=== PATIENT | female | born 1985 | race Caucasian/White ===

== ENCOUNTER → 2022-10-05 15:21 | Outpatient (CLI) | payer OTHER, SELFPAY ==
[2022-10-05 19:02] LABS: Urine Chlamydia NOT DETECTED; Urine N gonorrhoeae NOT DETECTED
== END ==
PROVIDERS: PCP Nurse Practitioner Family; Visit Provider Specialist
DX: Z34.01 Encounter for supervision of normal first pregnancy, first trimester (principal); Z3A.09 9 weeks gestation of pregnancy
CPT/HCPCS: 87491; 87591

== ENCOUNTER → 2022-10-20 09:55 | Outpatient (CLI) | payer OTHER, SELFPAY ==
[2022-10-20 11:14] LABS: Add Manual Diff / Slide Review NO; Basophils Absolute Auto 0 /uL (0-100); Basophils Percent Auto 0.6 % (0-2); Eosinophils Absolute Auto 100 /uL (0-450); Hematocrit 36.3 % (36-46); Hemoglobin 12.5 g/dL (12.0-16.0); Lymphocytes Absolute Auto 1200 /uL (1100-4500); Lymphocytes Percent Auto 15.4 % (25-40); Mean Corpuscular HGB Conc 34.5 % (30-36); Mean Corpuscular Hemoglobin 30.3 PG (26-34); Mean Corpuscular Volume 87.7 fL (80-100); Monocytes Absolute Auto 500 /uL (0-900); Monocytes Percent Auto 6.9 % (3-14); Neutrophils Absolute Auto 6000 /uL (1500-7000); Neutrophils Percent Auto 76.1 % (50-75); Platelet Count 257 X10^3/uL (150-400); Red Blood Cell Count 4.14 X10^6/uL (4.0-5.2); Red Cell Distribution Width 13.6 % (11.6-14.8); White Blood Cell Count 7.8 X10^3/uL (4.5-11.0)
[2022-10-20 18:53] LABS: HIV 1 & 2 Ab/Ag 4th Gen Combo NEGATIVE (NEGATIVE); Hep C Virus Ab w/Reflex Quant NEGATIVE s/c (NEGATIVE); Hepatitis B Surface Antigen NEGATIVE s/c (NEGATIVE); Rubella Antibody IgG 78.6 IU/mL (>15)
[2022-10-21 03:56] LABS: RPR Screen Non Reactive (Non Reactive)
[2022-10-21 07:31] LABS: Varicella IgG Antibody >4000 index (Immune >165)
== END ==
PROVIDERS: Referring Provider Obstetrics & Gynecology; Visit Provider Obstetrics & Gynecology
DX: O09.511 Supervision of elderly primigravida, first trimester (principal)
CPT/HCPCS: 36415; 80055; 86787; 86803; 86850; 86900; 86901; 87086; 87389

== ENCOUNTER → 2022-11-16 15:24 | Outpatient (CLI) | payer OTHER, SELFPAY ==
[2022-11-18 22:20] LABS: AFP Value 41.6 ng/mL (.); Gest Age on Col Date 15.7 weeks (.); Insulin Dep Diabetes No (.); OSBR Risk 1IN 8371 (.); Results Report (.); Test Results *Screen Negative* (.)
== END ==
PROVIDERS: PCP Nurse Practitioner Family; Referring Provider Obstetrics & Gynecology; Visit Provider Obstetrics & Gynecology
DX: Z34.02 Encounter for supervision of normal first pregnancy, second trimester (principal); Z3A.16 16 weeks gestation of pregnancy
CPT/HCPCS: 36415; 82105

== ENCOUNTER → 2022-12-21 10:40 | Outpatient (CLI) | payer OTHER, SELFPAY ==
--- NOTE | 2022-12-21 10:41 | DI.US.S_ITS ---
PROCEDURE: US OB >= 14 WEEKS FETUS INDICATIONS: anatomy scan OUTSIDE/PRIOR DATING DATA: Last menstrual period (LMP): 07/29/2022. LMP-based estimated date of delivery (ADELAIDA): 05/05/2023. First dating scan (date and location): 10/05/2022. Estimated date of delivery (ADELAIDA) from first dating scan: 04/30/2023. The calculations are made using the clinical ADELAIDA of 05/05/2023. TECHNIQUE: Real-time scanning was performed of the fetus, with image documentation and biometric measurements. COMPARISON: [facility], , OB <= 14 WEEKS FETUS, 10/05/2022, 15:10. FINDINGS: General: A single living intrauterine gestation is present. Presentation: Variable. Placenta: Placental position is anterior, without previa. Amniotic fluid index: 17.9 cm, normal range is 5-24 cm. Single deepest vertical pocket is 6.2 cm. heart rate: 144 beats per minute. Maternal cervical canal: 4.1 cm long. Normal lower limit is 2.5 cm. biometrics: Biparietal diameter: 5.2 cm, 21 weeks 5 days Head circumference: 19.1 cm, 21 weeks 2 days Abdominal circumference: 16.8 cm, 21 weeks 6 days Femur length: 3.5 cm, 21 weeks 1 day Clinically estimated gestational age: 20 weeks 5 days Composite gestational age from present scan: 21 weeks 4 days Estimated weight and percentile: 431 g, 86 percentile Anatomic survey: Neuro: Ventricles are non-dilated at less than 10 mm. Cisterna magna is normal at 3-11 mm. Cerebellum is normal in size and morphology. Nuchal skin fold: Normal at less than 6 mm between 14-21 weeks gestational age. Face: Nose and lips, facial profile are normal. Spine: No evidence for spina bifida. Heart: 4-chambered heart is present, with normal ventricular outflow tracts. Diaphragm: Diaphragm is intact. Stomach: Left-sided stomach is present. Kidneys: No hydronephrosis. Normal is less than 5 mm in 2nd trimester, less than 7 mm in 3rd trimester. Cord: 3-vessel cord has orthotopic insertion. Bladder: Normal in size. Extremities: All 4 extremities identified. IMPRESSION: 1. Hernandez living intrauterine at 21 weeks 4 days based on today's ultrasound. Fetus is in the 86 percentile for weight. 2. Normal placenta and amniotic fluid. 3. Normal and complete anatomic survey. We strive to produce accurate, complete, and clear reports of imaging services. To assist us in improving patient care, this report was composed using standard report templates and voice recognition software. Therefore, it may contain abnormal punctuation, insertions and/or omissions. Occasional wrong-word or sound-alike substitutions may occur. Though we review the report and make efforts to correct it, we do recommend that the report be read carefully in proper context to recognize any text inaccuracies. Dictated by: Jas Kearns M.D. on 12/21/2022 at 14:14 Approved by: Jas Kearns M.D. on 12/21/2022 at 14:18
== END ==
PROVIDERS: PCP Nurse Practitioner Family; Referring Provider Obstetrics & Gynecology; Visit Provider Obstetrics & Gynecology
DX: Z34.02 Encounter for supervision of normal first pregnancy, second trimester (principal); Z3A.21 21 weeks gestation of pregnancy
CPT/HCPCS: 76811

== ENCOUNTER → 2023-02-17 07:29 | Outpatient (CLI) | payer OTHER, SELFPAY ==
[2023-02-17 10:19] LABS: Hematocrit 33.2 % (36-46); Hemoglobin 11.6 g/dL (12.0-16.0)
[2023-02-17 10:31] LABS: GTT (PREG) 1 Hour PP 50gm Dose 109 mg/dL (76-139)
== END ==
PROVIDERS: PCP Nurse Practitioner Family; Referring Provider Obstetrics & Gynecology; Visit Provider Obstetrics & Gynecology
DX: Z34.02 Encounter for supervision of normal first pregnancy, second trimester (principal); Z3A.26 26 weeks gestation of pregnancy
CPT/HCPCS: 36415; 82950; 85014; 85018

== ENCOUNTER → 2023-04-17 15:30 | Outpatient (CLI) | payer OTHER, SELFPAY ==
[2023-04-20 07:32] LABS: Strep Grp B PCR NEG for Grp B Strep
== END ==
PROVIDERS: PCP Nurse Practitioner Family; Visit Provider Physician Assistant Medical
DX: Z34.03 Encounter for supervision of normal first pregnancy, third trimester (principal); Z3A.37 37 weeks gestation of pregnancy
CPT/HCPCS: 87653

== ENCOUNTER 2023-05-08 18:57 | Inpatient (IN) | payer OTHER, SELFPAY ==
[2023-05-08 19:41] VITALS: BP 115/76
[2023-05-08 19:53] LABS: Add Manual Diff / Slide Review NO; Basophils Absolute Auto 100 /uL (0-100); Basophils Percent Auto 0.7 % (0-2); Eosinophils Absolute Auto 100 /uL (0-450); Eosinophils Percent Auto 1.2 % (2-4); Hematocrit 37.4 % (36-46); Hemoglobin 12.9 g/dL (12.0-16.0); Lymphocytes Absolute Auto 1200 /uL (1100-4500); Lymphocytes Percent Auto 13.7 % (25-40); Mean Corpuscular HGB Conc 34.4 % (30-36); Mean Corpuscular Hemoglobin 31.6 PG (26-34); Mean Corpuscular Volume 91.8 fL (80-100); Monocytes Absolute Auto 700 /uL (0-900); Monocytes Percent Auto 8.2 % (3-14); Neutrophils Absolute Auto 6900 /uL (1500-7000); Neutrophils Percent Auto 76.2 % (50-75); Platelet Count 224 X10^3/uL (150-400); Red Blood Cell Count 4.08 X10^6/uL (4.0-5.2); Red Cell Distribution Width 13.3 % (11.6-14.8)
[2023-05-08] MEDS: DINOPROSTONE VAG (CERVIDIL) 10 MG VAG (20:00)
[2023-05-09] MEDS: LACTATED RINGERS 1,000 ML 100 ML IV ×3 (01:30→15:14)
--- NOTE | 2023-05-09 05:02 | PM.ANES.PR ---
Operative Date/Time/Diagnoses Date of procedure: 05/09/23 Time of procedure: 04:37 Pre-op diagnosis: Labor Pain Post-op diagnosis: same Note Patient is a requesting labor epidural for labor pain
--- NOTE | 2023-05-09 05:04 | PM.AN.REGBLK ---
Regional Block Pre-procedure Procedure: Continuous Lumbar Epidural for L&D Attending OB provider: Daxa Joseph PMH/ROS narrative: Patient is a requesting labor epidural for labor pain Hx: No personal or family history of anesthesia problems. Exam narrative: Mallampati: 2, Good neck ROM, T.M. > 3cm ASA Class: II Labs: Hct 37.4 % (36-46) 05/08/23 19:30 Plt Count 224 X10^3/uL (150-400) 05/08/23 19:30 Medications: Current Medications Generic Name Dose Route Start Last Admin Trade Name Freq PRN Reason Stop Dose Admin Calcium Carbonate 1,000 mg 05/08/23 19:23 Calcium Carbonate 500 Mg Tab PO Q4HR PRN Dyspepsia Carboprost Tromethamine 250 mcg 05/08/23 19:23 Carboprost 250 Mcg/Ml Ampul IM Q90M PRN Bleeding Diphenhydramine HCl 25 mg 05/09/23 05:02 Diphenhydramine 50 Mg/Ml Vial IV Q10M PRN Pruritis Fentanyl 50 mcg 05/08/23 19:23 Fentanyl 100 Mcg/2 Ml Inj IV Q1H PRN Pain, Moderate (4-6) Oxytocin/Lactated Ringer's 30 unit in 500 mls @ 2 mls/hr 05/08/23 19:30 Oxytocin Premix IV TITRATE JAIME Protocol 2 MILLIUNIT/MIN Lactated Ringer's 1,000 mls @ 100 mls/hr 05/08/23 19:30 05/09/23 01:30 Lactated Ringers IV 100 mls/hr CONT JAIME Administration Oxytocin/Lactated Ringer's 30 unit in 500 mls @ 200 mls/hr 05/08/23 19:23 Oxytocin Premix IV CONT PRN Bleeding Protocol Tranexamic Acid 1,000 mg/ 100 mls @ 200 mls/hr 05/08/23 19:23 Sodium Chloride IV NOW PRN Bleeding FENT 2MCG/ML BUPIV 0.1% EPI 200 mcg in 100 mls @ 6 mls/hr 05/09/23 05:15 Fentanyl/Bupiv/Ns 2mcg/Ml - 0.1% EPIDURAL CONT JAIME Lidocaine HCl 20 ml 05/08/23 19:23 Lidocaine 1% 20 Ml INJ INTRA-OP PRN Post Delivery Methylergonovine Maleate 0.2 mg 05/08/23 19:23 Methylergonovine 0.2 Mg Tablet PO Q6HR PRN Heavy Bleeding Methylergonovine Maleate 0.2 mg 05/08/23 19:23 Methylergonovine 0.2 Mg/Ml Vial IM NOW PRN Bleeding Misoprostol 400 mcg 05/08/23 19:23 Misoprostol 200 Mcg Tablet SL NOW PRN Bleeding Misoprostol 800 mcg 05/08/23 19:23 Misoprostol 200 Mcg Tablet SC NOW PRN Bleeding Nalbuphine HCl 2.5 mg 05/09/23 05:02 Nalbuphine 20 Mg/Ml Ampul IV Q10M PRN Pruritis Naloxone HCl 0.2 mg 05/08/23 19:23 Naloxone 0.4 Mg/Ml Vial IV Q2MIN PRN Opiate Reversal Ondansetron HCl 4 mg 05/08/23 19:23 Ondansetron 4 Mg/2 Ml Inj IV Q4HR PRN Nausea And Vomiting Oxytocin 10 unit 05/08/23 19:23 Oxytocin 10 Unit/Ml Vial IM NOW PRN Bleeding Allergies: Allergies Allergy/AdvReac Type Severity Reaction Status Date / Time No Known Drug Allergies Allergy Verified 05/08/23 13:39 Procedure Insertion date: 05/09/23 Insertion time: 04:41 Prep/Local: 1% lidocaine (Sterile drape, gloves, technique; prep with Chloroprep) Interspace: L4-5 Patient position: sitting Needle: 18 gauge Hustead Loss of resistance with: saline FUNMI at (cm): 3 Catheter placed at SKIN (cm): 8 Catheter in SPACE (cm): 5 Sensory level: T10 Insertion: No CSF, No Blood, No Paresthesia with insertion, No Paresthesia with injection and No Test dose reaction Initial Medications TEST DOSE time: 04:46 TEST DOSE: 1.5% lidocaine with epinephrine 1:200k (mL): 5 BOLUS DOSE time: 04:46 BOLUS DOSE (mL): 5 BOLUS DOSE med: other (2% Lidocaine) Infusion INFUSION: 0.125% bupivacaine and with fentanyl 2 mcg/mL Initial rate (mL/hr): 10 Subsequent interventions: epidural to @ 14:20 Post-procedure Anesthesia time START: 04:41 Anesthesia time END: 14:20 Post-procedure Anesthesia Assessment: Yes CV function: HR/BP stable, Yes Resp function: RR/sat/airway adequate, Yes Post-op hydration adequate, Yes Pain control adequate, Yes Nausea & vomiting absent, Yes Temperature > 36 C and Yes Mental status appropriate
[2023-05-09] MEDS: OXYTOCIN PREMIX 30 UNIT/500 ML PLAST..BAG IV (07:26)
--- NOTE | 2023-05-09 07:34 | PM.OBHP.IH.1 ---
OB HPI Date/Time Date of admission: 05/08/23 Date Patient Seen: 05/09/23 Time Patient Seen: 07:34 History of Present Condition Chief complaint: OB ADELAIDA Calculator Estimated Delivery Date Method Current WG Current Estimate 05/05/23 LMP (Certain) 40w 4d Other Estimates 05/02/23 Ultrasound #1 41w 0d Estimated Gestational Age (weeks): 40+4 : 1 Para: 0 care: good care, initiated at week # (9), number of visits (12) and pounds weight gain (51) Dating criteria OB: LMP confirmed by 1st trimester US Ultrasounds: normal 1st trimester US and normal mid trimester US Abnormal ultrasound findings: LGA Obstetrical complications: none and other (LGA) Medical complications OB: none Indications Indication for induction OB: post dates (with LGA) Preadmission Labs Last OB Lab Results: Blood Type O Positive 05/08/23 19:30 Antibody Screen Negative 05/08/23 19:30 Hematocrit 37.4 % (36-46) 05/08/23 19:30 Hemoglobin 12.9 g/dL (12.0-16.0) 05/08/23 19:30 Hepatitis B Surface Antigen Negative s/c (NEGATIVE) 10/20/22 10:51 Hepatitis C Antibody Negative s/c (NEGATIVE) 10/20/22 10:51 Rubella Antibody 78.6 IU/mL (>15) 10/20/22 10:51 Varicella-Zoster IgG Antibody >4000 index (Immune >165) 10/20/22 10:51 Glucose 1 Hour 109 mg/dL (76-139) 02/17/23 08:46 Group B Streptococcus (PCR) Neg for grp b strep 04/17/23 15:30 -: Chlamydia screen: negative, Gonorrhea screen: negative and Urine: negative -: PAP smear: Normal Genetic Screens: Cell-free DNA: Normal (normal female) and Alpha-fetoprotein: Normal External Labs -: Urine: negative Evaluation Evaluation Baseline heart rate: 135 Variability: Minimal (3-5) monitor accelerations: Present Uterine Contraction Intensity: Mild Status: Category ll Dilation (cm): 3 Effacement (%): 80 station: -2 [facility] Medical History (Updated 05/06/23 @ 12:03 by Daxa Joseph MD) Allergies (~1990) Sprained ankle Chicken pox (~2000) Hearing loss (~2020) Frequent UTI Healthy adult Surgical History (Updated 10/04/22 @ 21:36 by Rivka Mckeon) Anesthesia [place] teeth extracted (~2012) Family History (Updated 10/04/22 @ 21:42 by Rivka Mckeon) Father Hypertension Diabetes mellitus Hypothyroidism Sister Bere's thyroiditis Gestational diabetes Mental health problem Grandmother A-fib History of heart disease Hyperlipidemia Osteoporosis Grandfather Myocardial infarction History of heart disease Parkinson's disease Grandmother Breast cancer Family/Other Accidental Mother Osteopenia Brother Mental health problem Grandfather Lewy body dementia Social History marital status: number of children: 0 household members: spouse lives independently: Yes caregiver/support person: No housing: apartment pets and animals: No education level: college (amparo's degree) occupational status: employed (clinic RN) current occupational exposures/hazards: Yes (discussed precautions) biju/buddhist: [employer] special biju needs: No travel history: recent ([place]) seatbelt use: always helmet use: Yes water heater temp set < 120 deg: Yes working smoke detector in home: Yes fire extinguisher in home: Yes carbon monox detector in home: Yes firearms in home: Yes firearms unloaded and locked: No (not currently, but will be before baby is mobile) do you feel safe at home: Yes Smoking Status: Never smoker second hand exposure: No alcohol intake: former (3-4/week when not ) substance use type: does not use during the past year weight has: remained stable well-balanced diet: daily or most days daily servings fruits/ve or more times/day caffeine: Yes (occasional coffee) Type(s) of exercise: aerobic and running frequency: 3-4 times per week Meds Home Medications and Allergies Home Medications Medication Instructions Recorded Confirmed Type calcium carbonate 600 mg calcium 600 mg PO DAILY 09/09/22 05/08/23 History (1,500 mg) tablet cholecalciferol (vitamin D3) 50 50 mcg PO DAILY 09/09/22 05/08/23 History mcg (2,000 unit) capsule prenat.vits,shannon,ayz-njpy-gorso 1 tab PO DAILY 09/09/22 05/08/23 History Allergies Allergy/AdvReac Type Severity Reaction Status Date / Time No Known Drug Allergies Allergy Verified 05/08/23 13:39 OB Exam Narrative Exam Narrative: Generally: Patient lying on right side, no acute distress Fundal height: 40 cm Estimated weight: 8-1/2 lb Extremities: No edema, negative Homans Objective Labs 05/08/23 19:30 Labs: Laboratory Results - last 24 hr 05/08/23 19:30 WBC 9.0 RBC 4.08 Hgb 12.9 Hct 37.4 MCV 91.8 MCH 31.6 MCHC 34.4 RDW 13.3 Plt Count 224 Neut % (Auto) 76.2 H Lymph % (Auto) 13.7 L Addison % (Auto) 8.2 Eos % (Auto) 1.2 L Baso % (Auto) 0.7 Neut # (Auto) 6900 Lymph # (Auto) 1200 Addison # (Auto) 700 Eos # (Auto) 100 Baso # (Auto) 100 Blood Type O Positive Antibody Screen Negative Assessment and Plan Assessment and Plan Assessment and Plan narrative: Assessment: 37-year-old 1 para 0 at 40-,4/7 weeks gestation status post 1 dose of Cervidil with favorable cervix, entering active labor Status post spontaneous rupture of membranes at 1:35 a.m. Comfortable with epidural Plan: We will try to start Pitocin and see if baby tolerates Time Spent with Patient Total time spent with greater than 50% in coordination of care (as documented) at patient's floor/unit and/or counseling patient:: 15-24 minutes
[2023-05-09] MEDS: FENT 2MCG/ML BUPIV 0.1% EPI 200 MCG/100 ML PLAST..BAG 6 MCG EPIDURAL (12:32)
--- NOTE | 2023-05-09 12:52 | PM.OBPNLAB ---
Date/Time Date Patient Seen: 05/09/23 Time Patient Seen: 12:52 Pain Control Pain control: epidural Pelvic Exam Dilation (cm): 4 Effacement (%): 100 station: -2 Amniotic membrane status: Ruptured Contractions Contractions on admission: none Monitor mode: External Pitocin rate (mU/min): 1 Contraction frequency (min): 5 Contraction duration (min): 1 Contraction intensity: Mild Status status: Category ll Heart Rate Baseline: 145 Monitor Accelerations: Present (small) Monitor Decelerations: Late Monitor Variability: Minimal Assessment and Plan Assessment: induction ongoing Plan: continuous present management Comments: O2 per FM IVF bolus Turn side to side
--- NOTE | 2023-05-09 14:03 | SUR.OPER ---
Supine on Padded OR bed, head on pillow, safety belt at thigh, arms secured on padded arm boards at <90 degrees abduction. Bump under right buttock. Legs uncrossed with pillow under knees, gel pad to heels, tape over blanket to lower legs.
--- NOTE | 2023-05-09 14:03 | PM.OBPNLAB ---
Date/Time Date Patient Seen: 05/09/23 Time Patient Seen: 14:03 Pain Control Pain control: epidural Pelvic Exam Dilation (cm): 4 Effacement (%): 100 station: -1 Amniotic membrane status: Ruptured Contractions Contractions on admission: none Monitor mode: External Pitocin rate (mU/min): 1 Contraction frequency (min): 5 Contraction duration (min): 1 Contraction intensity: Mild Status status: Category ll Heart Rate Baseline: 150 Monitor Accelerations: Absent Monitor Decelerations: Late Monitor Variability: Minimal Assessment and Plan Assessment: induction ongoing Plan: Comments: Assessment: 37-year-old 1 para 0 at 40-,4/7 weeks gestation for induction of labor Minimal [id number]-pw-[id number] variability with occasional late decelerations Unable to advance Pitocin due to intolerance of labor Minimal cervical change since this morning Plan: Primary low-transverse section The risks, benefits, and alternatives to the procedure were explained to the patient. The risks including bleeding, infection, injury to the bowel, bladder, or ureters. She understands these risks and agrees to proceed. A full par Q was held and consent form was signed.
[2023-05-09] MEDS: CEFAZOLIN 2 GM/100 ML PREMIX 100 ML IV (14:37)
--- NOTE | 2023-05-09 14:49 | SUR.OPER ---
Viable female delivered via section at 14:45. Cord blood vials x2 and placenta sent with L&D RN.
[2023-05-09] MEDS: ACETAMINOPHEN IV 1,000 MG/100 ML VIAL 400 MG IV (14:51)
--- NOTE | 2023-05-09 15:30 | P.OP_ITS ---
Operative Date/Time/Diagnoses Date of procedure: 05/09/23 Time of procedure: 15:30 Pre-op diagnosis: 40+4 weeks gestation intolerance of labor LGA infant Post-op diagnosis: same Procedure & Clinicians Procedure: Primary low transverse C section Same procedure as scheduled: Yes Indications: intolerance of labor LGA Surgeon: Daxa Joseph Click Yes if Unassisted: No Client Executive: Ivonne Jimenes Reason for Client Executive: The respiratory care assistant was necessary to retract during entry into the abdomen and uterus. She assisted with delivery of the infant with fundal pressure. She assisted with closure with retraction, clipping of suture and closure of the contralateral fascia. Anesthesia Type: Epidural (with Duramorph) Operative Notes Findings: Live female in the LOP position Nuchal cord x 1 Normal tubes and ovaries Closure Type: primary Specimen(s): cord blood, cord pH and placenta Intraoperative meds administered: Acetaminophen, Duramorph, Ketorolac and Pitocin Applied: Catheter (to continuous drainage) Estimated Blood Loss (mL): 350 Blood products transfused: none Procedure in detail: The patient was taken to the operating room where she was placed in the dorsal supine position. She was prepped and draped in the usual sterile fashion. After epidural analgesia was found to be adequate, a Pfannenstiel skin incision was made 2 fingerbreadths above the pubic symphysis and carried through to the underlying layer of fascia. The fascia was nicked in the midline and the incision extended bilaterally with the Bradford scissors. The superior aspect of the fascial incision was grasped with the Jair clamps, elevated, and the underlying rectus muscles dissected off sharply and bluntly. Attention was then turned to the inferior aspect of this incision which in a similar fashion was grasped with the Jair clamps, elevated, and the underlying rectus muscles dissected off sharply and bluntly. Rectus muscles were in the midline. Peritoneum was identified and grasped between 2 hemostats. This was entered sharply with the Metzenbaum scissors. This incision was extended bluntly. The bladder blade was inserted. The vesicouterine peritoneum was identified, grasped between 2 pickups, and entered sharply with the Metzenbaum scissors. This incision was extended bilaterally, and the bladder flap created digitally. The bladder blade was reinserted. The lower uterine segment was incised in a transverse fashion with the scalpel. Upon entering the amniotic sac there was clear amniotic fluid. The infant was found to be in the MIRZA presentation. The head was delivered without difficulty. A nuchal cord x1 was reduced. The remainder of the body delivered without difficulty. The cord was double clamped and cut after 1 minute. Cord bloods were obtained and a piece of cord for cord pH was obtained. Pitocin was given in the IV fluids. The infant was handed off to waiting RN and RT. the placenta was delivered by expression. The uterus was cleared of all clots and debris. The uterine incision was repaired with 1. Chromic in a running interlocking fashion, and a second layer of the same suture was used for an imbricating layer. Hemostasis was achieved. The tubes and ovaries were examined and were found to be normal. The gutters were cleared of all clots and debris. The bladder flap was reapproximated using 2-0 Vicryl in a running fashion. The parietal peritoneum was closed using 2-0 Vicryl in a running fashion. The fascia was reapproximated using 0 Vicryl in a running fashion. Hemostasis was achieved in the subcutaneous layer using the Bovie and then were irrigated with warm normal saline. Five simple interrupted sutures were placed in the subcutaneous layer to reapproximate. The skin was closed with 4-0 Monocryl in a subcuticular fashion. Steri-Strips and an Aquacel dressing were placed. The uterus was expressed of a small amount of old blood. Sponge, lap, and instrument counts were correct x2. The patient tolerated the procedure well, and was taken to PACU in stable condition. [place] Baby 1: Gender: Female Presentation: vertex Position: Left Occiput Posterior Placental Delivery Description: Expressed Cord Vessel Description: 3 Vessels and Nuchal Cord (x1) score (1 min): 9 score (5 min): 9 weight: 9 lb 7 oz Post-operative Condition: stable Disposition: PACU Aftercare: routine postop
[2023-05-09 15:31] VITALS: BP 116/81; PULSE 72; RESP 14; TEMP 36.4; O2SAT 97
[2023-05-09 15:38] VITALS: BP 116/86; PULSE 73; RESP 20; O2SAT 97
[2023-05-09 15:40] VITALS: BP 117/82; PULSE 74; RESP 22; O2SAT 96
[2023-05-09 15:45] VITALS: BP 120/84; PULSE 73; RESP 13; TEMP 36.6; O2SAT 96
[2023-05-09 16:00] VITALS: BP 125/87; PULSE 69; RESP 14; TEMP 36.4; O2SAT 98
--- NOTE | 2023-05-09 16:12 | SUR.PHASEI ---
Pt to BC in bed with Marilyn Granger at bedside.
[2023-05-09] MEDS: OXYCODONE IR 5 MG TABLET PO (18:46)
[2023-05-09] MEDS: KETOROLAC 30 MG/ML VIAL IV (22:07)
[2023-05-09] MEDS: ACETAMINOPHEN 325 MG TABLET 650 MG PO (22:07)
[2023-05-10] MEDS: OXYCODONE IR 5 MG TABLET PO ×3 (00:25→17:01)
[2023-05-10] MEDS: ACETAMINOPHEN 325 MG TABLET 650 MG PO ×4 (04:49→23:06)
[2023-05-10] MEDS: KETOROLAC 30 MG/ML VIAL IV ×2 (04:50→10:57)
[2023-05-10 07:24] LABS: Hematocrit 34.5 % (36-46); Hemoglobin 11.7 g/dL (12.0-16.0)
[2023-05-10] MEDS: DOCUSATE 100 MG CAPSULE PO (08:54)
[2023-05-10] MEDS: PRENATAL VIT,CALC/IRON/FOLIC 1 TABLET 1 TAB PO (08:54)
[2023-05-10 11:15] VITALS: BP 125/87; PULSE 69; RESP 14; TEMP 36.4
[2023-05-10] MEDS: IBUPROFEN 600 MG TABLET PO ×2 (17:14→23:06)
--- NOTE | 2023-05-10 23:12 | PM.OBPN.1 ---
Subjective - OB Subjective Patient comments: no complaints, tolerating diet and other (voided) [place] baby status: doing well and nursing well [place] feeding status: exclusively breast feeding Date Patient Seen: 05/10/23 Time Patient Seen: 09:15 Interval history: POD#1 s/p C section BF going well. Voided without the catheter. Pain well controlled Exam Vital Signs (past 8 hours): Oxygen Delivery Method Room Air Narrative Exam Narrative: Gen: Walking in room, NAD Fundus: Firm at U Incision: C/D/I with Aquacel dressing Ext: No edema, neg Raicel's. Objective Labs 05/10/23 07:09 Labs: Laboratory Results - last 24 hr 05/10/23 07:09 Hgb 11.7 L Hct 34.5 L Assessment & Plan Plan day: 1 plan OB: routine postop care Time Spent With Patient Time: Total time spent is greater than 50% in coordination of care (as documented) at patient's floor/unit and/or counseling patient: Time with patient: 15-24 minutes
[2023-05-11] MEDS: OXYCODONE IR 5 MG TABLET PO ×2 (02:42→08:24)
[2023-05-11] MEDS: IBUPROFEN 600 MG TABLET PO (05:23)
[2023-05-11] MEDS: ACETAMINOPHEN 325 MG TABLET 650 MG PO (05:23)
[2023-05-11] MEDS: DOCUSATE 100 MG CAPSULE PO (08:24)
[2023-05-11] MEDS: PRENATAL VIT,CALC/IRON/FOLIC 1 TABLET 1 TAB PO (08:24)
== END 2023-05-11 11:15 | disposition home or self-care (01) | DRG 788 ==
PROVIDERS: Admitting Provider Obstetrics & Gynecology; PCP Nurse Practitioner Family; Referring Provider Obstetrics & Gynecology; Visit Provider Obstetrics & Gynecology
PROC: 10D00Z1 Extraction of Products of Conception, Low, Open Approach (ICD-10-PCS; CPT 59514; principal; 2023-05-09 14:30)
DX: O36.63X0 Maternal care for excessive fetal growth, third trimester, not applicable or unspecified (principal); O76 Abnormality in fetal heart rate and rhythm complicating labor and delivery; Z3A.40 40 weeks gestation of pregnancy; Z37.0 Single live birth
CPT/HCPCS: 36415; 59050; 59200; 59510; 59514; 85014; 85018; 85025; 86850; 86900; 86901; G0379; J0131; J0690; J1100; J1885; J2274; J2405; J2590

== ENCOUNTER → 2024-11-20 14:42 | Outpatient (ROUT) | payer OTHER, SELFPAY ==
[2024-11-20 16:30] LABS: Urine N gonorrhoeae NOT DETECTED
[2024-11-20 16:54] LABS: Urine Chlamydia NOT DETECTED
== END ==
LOC: LAB 14:43
PROVIDERS: PCP Family Medicine; Visit Provider Obstetrics & Gynecology
DX: Z34.81 Encounter for supervision of other normal pregnancy, first trimester (principal); Z3A.08 8 weeks gestation of pregnancy
CPT/HCPCS: 87086; 87147; 87491; 87591

== ENCOUNTER → 2024-12-18 10:14 | Outpatient (CLI) | payer OTHER, SELFPAY ==
[2024-12-18 12:08] LABS: Add Manual Diff / Slide Review NO; Basophils Absolute Auto 0 /uL (0-100); Basophils Percent Auto 0.6 % (0-2); Eosinophils Absolute Auto 100 /uL (0-450); Eosinophils Percent Auto 1.5 % (2-4); Hematocrit 37.6 % (36-46); Lymphocytes Absolute Auto 1100 /uL (1100-4500); Lymphocytes Percent Auto 16.5 % (25-40); Mean Corpuscular HGB Conc 34.6 % (30-36); Mean Corpuscular Hemoglobin 30.6 PG (26-34); Mean Corpuscular Volume 88.6 fL (80-100); Monocytes Absolute Auto 400 /uL (0-900); Monocytes Percent Auto 5.8 % (3-14); Neutrophils Absolute Auto 5300 /uL (1500-7000); Neutrophils Percent Auto 75.6 % (50-75); Platelet Count 273 X10^3/uL (150-400); Red Blood Cell Count 4.24 X10^6/uL (4.0-5.2); Red Cell Distribution Width 13.4 % (11.6-14.8)
[2024-12-18 12:24] LABS: Natera Collection Specimen Collected
[2024-12-18 12:43] LABS: Vitamin D 25 Hydroxy (D3) 66.8 ng/mL (30.0-100.0)
[2024-12-18 12:59] LABS: Hepatitis B Surface Antigen NEGATIVE s/c (NEGATIVE); Rubella Antibody IgG 67.5 IU/mL (>15)
[2024-12-18 13:16] LABS: HIV 1 & 2 Ab/Ag 4th Gen Combo NEGATIVE (NEGATIVE); Hep C Virus Ab w/Reflex Quant NEGATIVE s/c (NEGATIVE)
[2024-12-18 15:10] LABS: Free T4, Direct Thyroxine 1.18 ng/dL (0.78-2.19)
[2024-12-18 15:24] LABS: Thyroid Stimulating Hormone 1.97 uIU/mL (0.47-4.68)
[2024-12-19 10:08] LABS: Varicella IgG Antibody Reactive (Non Reactive)
== END ==
PROVIDERS: PCP Family Medicine; Referring Provider Obstetrics & Gynecology; Visit Provider Obstetrics & Gynecology
DX: Z34.81 Encounter for supervision of other normal pregnancy, first trimester (principal); E03.9 Hypothyroidism, unspecified; R76.8 Other specified abnormal immunological findings in serum; Z3A.12 12 weeks gestation of pregnancy
CPT/HCPCS: 36415; 80055; 82306; 84439; 84443; 86787; 86803; 86850; 86900; 86901; 87389

== ENCOUNTER → 2025-02-19 10:10 | Outpatient (CLI) | payer OTHER, SELFPAY ==
[2025-02-21 19:40] LABS: Gest Age on Col Date 21.6 weeks (.); OSBR Risk 1IN 6301 (.)
== END ==
PROVIDERS: PCP Family Medicine; Referring Provider Obstetrics & Gynecology; Visit Provider Obstetrics & Gynecology
DX: O09.529 Supervision of elderly multigravida, unspecified trimester (principal)
CPT/HCPCS: 36415; 82105

== ENCOUNTER → 2025-02-19 11:00 | Outpatient (CLI) | payer OTHER, SELFPAY ==
--- NOTE | 2025-02-19 11:01 | DI.US.S_ITS ---
PROCEDURE: US OB >= 14 WEEKS FETUS INDICATIONS: 20 week anatomy scan OUTSIDE/PRIOR DATING DATA: Last menstrual period (LMP): 09/21/24. LMP-based estimated date of delivery (ADELAIDA): 06/28/25. First dating scan (date and location): 11/20/24. Estimated date of delivery (ADELAIDA) from first dating scan: 06/28/25. The calculations are made using the working ADELAIDA of 06/28/25. TECHNIQUE: Real-time scanning was performed of the fetus, with image documentation and biometric measurements. Endovaginal scanning: No COMPARISON: [facility], , OB >= 14 WEEKS FETUS, 04/24/2023, 12:18. FINDINGS: General: A single living intrauterine gestation is present. Presentation: Transverse, head to maternal right. Placenta: Placental position is anterior with complete previa. (The patient has a very full urinary bladder during the exam and this can artificially cause appearance of a placenta previa) Amniotic fluid index: 15.8 cm, normal range is 5-24 cm. Single deepest vertical pocket is 5.7 cm. heart rate: 152 beats per minute. Maternal cervical canal: Closed and 4.2 cm long. Normal lower limit is 2.5 cm. biometrics: Biparietal diameter: 5.3 cm, 22 weeks one day Head circumference: 19.5 cm, 21 weeks five days Abdominal circumference: 17.8 cm, 22 weeks five days Femur length: 3.6 cm, 21 weeks three days Clinically estimated gestational age: 21 weeks four days Composite gestational age from present scan: 22 weeks 0 days Estimated weight and percentile: 474 g, 71st percentile Anatomic survey: Neuro: Ventricles are non-dilated at less than 10 mm. Cisterna magna is normal at 3-11 mm. Cerebellum is normal in size and morphology. Nuchal skin fold: Normal at less than 6 mm between 14-21 weeks gestational age. Face: Nose and lips, facial profile are normal. Spine: No evidence for spina bifida. Heart: 4-chambered heart is present, with normal ventricular outflow tracts. Diaphragm: Diaphragm is intact. Stomach: Left-sided stomach is present. Kidneys: No hydronephrosis. Normal is less than 5 mm in 2nd trimester, less than 7 mm in 3rd trimester. Cord: 3-vessel cord has orthotopic insertion. Bladder: Normal in size. Extremities: All 4 extremities identified. IMPRESSION: Single living intrauterine with estimated weight at the 71st percentile. Composite gestational age is in good agreement with the clinical age. Normal anatomy. Anterior placenta with appearance of complete previa. Follow-up ultrasound in the beginning of the 3rd trimester to assess for placental migration is recommended. For that exam, please only partially fill maternal bladder. Transvaginal imaging may be needed. Closed cervix and normal amniotic fluid volume. We strive to produce accurate, complete, and clear reports of imaging services. To assist us in improving patient care, this report was composed using standard report templates and voice recognition software. Therefore, it may contain abnormal punctuation, insertions and/or omissions. Occasional wrong-word or sound-alike substitutions may occur. Though we review the report and make efforts to correct it, we do recommend that the report be read carefully in proper context to recognize any text inaccuracies. Dictated by: Amaris Robertson M.D. on 02/20/2025 at 10:43 Approved by: Amaris Robertson M.D. on 02/20/2025 at 10:49
== END ==
LOC: US 11:01
PROVIDERS: PCP Family Medicine; Referring Provider Obstetrics & Gynecology; Visit Provider Obstetrics & Gynecology
DX: O09.529 Supervision of elderly multigravida, unspecified trimester (principal); Z3A.20 20 weeks gestation of pregnancy
CPT/HCPCS: 36415; 76811; 82105

== ENCOUNTER → 2025-03-19 13:35 | Outpatient (CLI) | payer OTHER, SELFPAY ==
--- NOTE | 2025-03-19 13:37 | DI.US.S_ITS ---
PROCEDURE: US OB FOLLOW UP INDICATIONS: PLACENTAL POSITION OUTSIDE/PRIOR DATING DATA: Working ADELAIDA is 06/28/2025 TECHNIQUE: Real-time scanning was performed of the fetus, with image documentation. COMPARISON: [facility], , OB >= 14 WEEKS FETUS, 02/19/2025, 11:22. FINDINGS: A single living intrauterine gestation is present. Presentation: Vertex. Placenta: Placental position is anterior, lower edge of the placenta contacts the internal os. Amniotic fluid index: 15.4 cm, normal range is 5-24 cm. Single deepest vertical pocket is 5.3 cm. heart rate: 162 beats per minute. Maternal cervical canal: 4.2 cm long. Normal lower limit is 2.5 cm. Clinically estimated gestational age: 25 weeks and 4 days IMPRESSION: Intrauterine gestation with cardiac motion in vertex presentation. Normal HAZEL. Persistent placenta previa. Continue follow-up possibly with endovaginal scanning recommended to assess for migration. This study was marked in PACS for communication Dictated by: Carlos Wei M.D. on 03/20/2025 at 9:54 Approved by: Carlos Wei M.D. on 03/24/2025 at 13:54
== END ==
PROVIDERS: PCP Family Medicine; Referring Provider Obstetrics & Gynecology; Visit Provider Obstetrics & Gynecology
DX: Z36.2 Encounter for other antenatal screening follow-up (principal); O44.02 Complete placenta previa NOS or without hemorrhage, second trimester; O09.522 Supervision of elderly multigravida, second trimester; Z3A.25 25 weeks gestation of pregnancy
CPT/HCPCS: 76816

== ENCOUNTER → 2025-04-16 10:11 | Outpatient (CLI) | payer OTHER, SELFPAY ==
[2025-04-16 12:41] LABS: Hematocrit 35.3 % (36-46); Hemoglobin 12.2 g/dL (12.0-16.0)
[2025-04-16 13:11] LABS: GTT (PREG) 1 Hour PP 50gm Dose 112 mg/dL (76-139)
[2025-04-16 13:29] LABS: Free T4, Direct Thyroxine 0.88 ng/dL (0.78-2.19)
[2025-04-16 13:42] LABS: Thyroid Stimulating Hormone 2.11 uIU/mL (0.47-4.68)
== END ==
PROVIDERS: PCP Family Medicine; Referring Provider Obstetrics & Gynecology; Visit Provider Obstetrics & Gynecology
DX: Z34.80 Encounter for supervision of other normal pregnancy, unspecified trimester (principal); Z13.1 Encounter for screening for diabetes mellitus; Z13.0 Encounter for screening for diseases of the blood and blood-forming organs and certain disorders involving the immune mechanism; E03.9 Hypothyroidism, unspecified; R76.89 Other specified abnormal immunological findings in serum
CPT/HCPCS: 36415; 82950; 84439; 84443; 85014; 85018